=== PATIENT | male | born 1950 | race Caucasian/White ===

== ENCOUNTER → 2016-09-27 | Outpatient (CLI) | payer SELFPAY | LOC: HHS 09:50 | DX: Z12.83 Encounter for screening for malignant neoplasm of skin (principal) ==

== ENCOUNTER → 2017-04-13 | Outpatient (CLI) | payer MEDICARE ==
--- NOTE | 2017-04-13 15:31 | RADIOLOGY REPORT (SQ) ---
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 TECHNIQUE: Axial images acquired through the brain without and with intravenous contrast. Images re viewed with bone, brain and subdural windows. Images stored on PACS. All CT scanners at this facility use dose modulation, iterative reconstruction, and/or weight based d osing when appropriate to reduce radiation dose to as low as reasonably achievable (ALARA). [facility]: Dose Right [facility]: CareDose [facility]: Dose Right [facility]: Teradose 4D [facility]: HERMEL DELOR CONTRAST TYPE AND DOSE: contrast/concentration: Isovue 370.00 mg/ml; Total Contrast Delivered: 50.0 ml; Total Saline Delivered: 55.0 ml RENAL FUNCTION: Creatinine 1.0 RADIATION DOSE: CT Rad equipment meets quality standard of care and radiation dose reduction techniq ues were employed. CTDIvol: 49.0 mGy. DLP: 1762 mGy-cm.. LIMITATIONS: None. FINDINGS: VENTRICLES: Normal size and contour. CEREBRUM: No masses. No hemorrhage. No midline shift. Normal dorantes/white matter differentiation. No ev idence for acute infarction. No enhancing lesions. CEREBELLUM: No masses. No hemorrhage. No alteration of density. No evidence for acute infarction. No enhancing lesions. EXTRA-AXIAL SPACES: No fluid collections. No enhancing lesions. ORBITS AND GLOBE: No intra- or extraconal masses. Normal contour of globe without masses. CALVARIUM: No fracture. PARANASAL SINUSES: No fluid or mucosal thickening. SOFT TISSUES: No mass or hematoma. OTHER: No other significant finding. IMPRESSION: NORMAL BRAIN CT WITHOUT AND WITH CONTRAST. EVIDENCE OF ACUTE STROKE: NO. TECHNICAL DOCUMENTATION: JOB ID: [id number] Quality ID # [id number]: Final reports with documentation of one or more dose reduction techniques (e.g., Au tomated exposure control, adjustment of the mA and/or kV according to patient size, use of iterative reconstruction technique) 2010 [employer]- All Rights Reserved
== END ==
LOC: RAD 12:41
PROVIDERS: ATTEND Radiology Radiation Oncology
DX: C77.0 Secondary and unspecified malignant neoplasm of lymph nodes of head, face and neck (principal); H53.9 Unspecified visual disturbance; C79.9 Secondary malignant neoplasm of unspecified site
CPT/HCPCS: 70470; 82565

== ENCOUNTER → 2017-04-15 | Outpatient (CLI) | payer MEDICARE ==
--- NOTE | 2017-04-17 09:41 | RADIOLOGY REPORT (SQ) ---
EXAM DESCRIPTION: PET CT SKULL/THIGH COMPLETED DATE/TIME: 04/15/2017 8:24 pm REASON FOR STUDY: HEAD, NECK CANCER C79.9 SECONDARY MALIGNANT NEOPLASM OF UNSPECIFIED SITE C77.0 S EC AND UNSP MALIG NEOPLASM OF NODES OF HEAD, FACE AND COMPARISON: CT from [facility] dated 03/05/2017. RADIONUCLIDE AND DOSE: 10.0 mCi F18 FDG The route of agent administration: Intravenous FASTING BLOOD SUGAR: 126 mg/dl CONTRAST TYPE AND DOSE: No CT contrast given. TECHNIQUE: Blood glucose level was verified. Above dose of FDG was injected intravenously. 2-D seg mented attenuation correction images were obtained from the base of the skull to the midthighs. Nonc ontrast CT images were obtained for attenuation correction and fusion with emission images. CT image s were performed without oral or intravenous contrast and are not sensitive for parenchymal lesions. A series of overlapping emission PET images were obtained. Images reviewed and manipulated at [facility] work station by the radiologist. Images stored on PACS. LIMITATIONS: None. FINDINGS: HEAD AND NECK: Extensive confluent soft tissue mass along the right side of the nasopharyn x and oropharynx extending from the skull base to the level of the epiglottis. Margins are difficult to evaluate on noncontrast imaging. There is bony destruction involving the clivus with soft tissue activity, mean SUV 7.47, as well as bony destruction extending to the level of the right jugular for amen with soft tissue mean SUV 8.05. Extensive soft tissue mass extending along the right side of th e nasopharynx and oropharynx with mean SUV values approaching 7. Large right submandibular lymph nod e measuring 4.2 x 4.8 cm (series 3, image 44). Mean SUV value 6.59. Midline submental lymph node me asuring 1.1 by 2.3 cm (series 3, image 46). Mean SUV value 6.48. Right-sided cervical lymph node at the level of the hyoid bone measuring 1.4 cm (series 3, image 52). Mean SUV value 8.72. Left side cervical lymph node at the level of the mandibular angle measuring 0.9 x 1.3 cm (series 3, image 30). Mean SUV value 4.72. CHEST: No areas of abnormal metabolic activity in the chest. ABDOMEN AND PELVIS: No areas of abnormal metabolic activity in the abdomen or pelvis. Expected physi ologic activity is present in the genitourinary system and bowel. PROXIMAL LOWER EXTREMITIES: No areas of abnormal metabolic activity in the soft tissues of the lower extremities. BONES: No abnormal metabolic activity in the visualized skeleton. ADDITIONAL CT FINDINGS: No additional significant findings on the noncontrast CT images. OTHER: No other significant findings. IMPRESSION: 1. EXTENSIVE SOFT TISSUE MASS ALONG THE RIGHT SIDE OF THE NASOPHARYNX AND OROPHARYNX EXTENDING FROM T HE SKULLBASE TO THE LEVEL OF THE EPIGLOTTIS CONSISTENT WITH KNOWN MALIGNANCY. THERE IS BONY DESTRUCT ION INVOLVING THE RIGHT SIDE OF THE SKULL BASE. THERE ARE ALSO SEVERAL ENLARGED LYMPH NODES DESCR IBED WITH ABNORMAL METABOLIC ACTIVITY CONSISTENT WITH METASTASES INCLUDING RIGHT AND LEFT SUBMANDIBUL AR ADENOPATHY AND MIDLINE SUBMENTAL ADENOPATHY WELL RIGHT CERVICAL ADENOPATHY. 2. NO ABNORMAL METABOLIC ACTIVITY IN THE CHEST, ABDOMEN, OR PELVIS. NO SIGNIFICANT CT FINDINGS IN TH CHRIS AREAS. TECHNICAL DOCUMENTATION: JOB ID: [id number] [employer]- All Rights Reserved
== END ==
LOC: RAD 15:25
PROVIDERS: ATTEND Radiology Radiation Oncology
DX: C77.0 Secondary and unspecified malignant neoplasm of lymph nodes of head, face and neck (principal); C79.9 Secondary malignant neoplasm of unspecified site
CPT/HCPCS: 78815; A9552

== ENCOUNTER 2017-10-14 11:35 | Emergency (ER) | payer MEDICARE, MEDICAID ==
[2017-10-14] MEDS ORDERED: RACEPINEPHRINE HCL 2.25% NEB 0.5 ML AMPUL NEB ONE (12:00)
[2017-10-14] MEDS ORDERED: NORMAL SALINE 1000 ML 1,000 ML IV ONE (12:00)
[2017-10-14] MEDS ORDERED: DEXAMETHASONE SOD PHOS INJ 10 MG/1 ML VIAL IV ONE (12:00)
--- NOTE | 2017-10-14 12:00 | ER Document Report ---
ED General - General Chief Complaint: Breathing Difficulty Stated Complaint: DIFFICULTY BREATHING Time Seen by Provider: 10/14/17 11:46 TRAVEL OUTSIDE OF THE [place] IN LAST 30 DAYS: No - HPI Patient complains to provider of: Difficulty breathing Notes: Patient coming in for difficulty breathing. Patient has known neck cancer throat cancer is followed up in [place] at [facility]. Patient states he has undergone radiation however acutely became short of breath today worsening the last few days. Patient denies any fevers chills nausea vomiting. Patient states feels like something is in his throat that he needs to cough up however cannot at this time. Patient does have a PEG tube because of dysphasia. Most of his medications are given 3 days 2. Patient also currently is on Eliquis because of a history of PE in the past. Patient states was supposed to have ENT surgery however this has been canceled as that the patient cannot have an MRI performed - Related Data Allergies/Adverse Reactions: No Known Allergies Allergy (Unverified 10/14/17 11:50) Past Medical History - Social History Smoking Status: Current Every Day Smoker Chew tobacco use (# tins/day): No Family History: Reviewed & Not Pertinent Patient has suicidal ideation: No Patient has homicidal ideation: No Renal/ Medical History: Denies: Hx Peritoneal Dialysis Review of Systems - Review of Systems Constitutional: No symptoms reported EENT: No symptoms reported Cardiovascular: No symptoms reported Respiratory: Short of breath Gastrointestinal: No symptoms reported Genitourinary: No symptoms reported Male Genitourinary: No symptoms reported Musculoskeletal: No symptoms reported Skin: No symptoms reported Hematologic/Lymphatic: No symptoms reported Neurological/Psychological: No symptoms reported Physical Exam - Vital signs Vitals: Temp Pulse Resp BP Pulse Ox 98.9 F 110 H 18 168/62 H 96 10/14/17 11:51 10/14/17 11:51 10/14/17 11:51 10/14/17 11:51 10/14/17 11:51 Interpretation: Normal - General General appearance: Appears well, Alert - HEENT Head: Normocephalic, Atraumatic Eyes: Normal Pupils: PERRL Mucous membranes: Dry - Respiratory Respiratory status: No respiratory distress Chest status: Nontender Breath sounds: Normal Chest palpation: Normal - Cardiovascular Rhythm: Regular Heart sounds: Normal auscultation Murmur: No - Abdominal Inspection: Normal - PEG tube in place no signs of infection Distension: No distension Bowel sounds: Normal Tenderness: Nontender Organomegaly: No organomegaly - Back Back: Normal, Nontender - Extremities General upper extremity: Normal inspection, Nontender, Normal color, Normal ROM , Normal temperature General lower extremity: Normal inspection, Nontender, Normal color, Normal ROM , Normal temperature, Normal weight bearing. No: Donato's sign - Neurological Neuro grossly intact: Yes Cognition: Normal Orientation: AAOx4 Steven Coma Scale Eye Opening: Spontaneous Steven Coma Scale Verbal: Oriented [place] Coma Scale Motor: Obeys Commands Steven Coma Scale Total: 15 Speech: Normal Motor strength normal: LUE, RUE, LLE, RLE Sensory: Normal - Psychological Associated symptoms: Normal affect, Normal mood - Skin Skin Temperature: Warm Skin Moisture: Dry Skin Color: Normal Course - Re-evaluation Re-evalutation: 10/14/17 16:10 Patient does have chronic anemia with chemistry profile showing some signs of possible dehydration and slight hyperkalemia. Patient underwent a CT of the neck. At this time to read is still pending I did call the radiologist states multiple sclerotic bony changes more likely from metastatic disease concerned as last radiographical information here as available is in March PET scan comparison shows possible enlargement of the mass with some cellular debris possibly tumor necrosis from radiation therapy there is some signs of some airway narrowing. Also concerns for possible aspiration changes in the upper lung larson. I discussed the case with Dr. Aguirre of [facility]. Agrees to transfer at this time for further evaluation agrees with antibiotics for CT findings will give Unasyn per his request. At this time patient's oxygenation presentation respiratory rate do look to be stable did not see any need for prophylactic intubation at this time do not see any need to actually intubate the patient at this time. Patient is maintaining his airway maintaining his secretions. - Vital Signs Vital signs: Temp Pulse Resp BP Pulse Ox 98.9 F 110 H 18 135/91 H 96 10/14/17 18:00 10/14/17 11:51 10/14/17 18:00 10/14/17 12:00 10/14/17 18:00 - Laboratory Result Diagrams: 10/14/17 13:05 10/14/17 13:05 Laboratory results interpreted by me: 10/14/17 10/14/17 10/14/17 13:05 13:05 14:04 RBC 3.04 L Hgb 9.4 L Hct 28.5 L RDW 14.8 H Seg Neuts % (Manual) 93 H Lymphocytes % (Manual) 3 L Monocytes % (Manual) 2 L Abs Neuts (Manual) 8.8 H Abs Lymphs (Manual) 0.3 L Carbonic Acid ABG pCO2 ABG HCO3 ABG Total CO2 Potassium 5.3 H Carbon Dioxide 36 H BUN 33 H Glucose 120 H Urine Ascorbic Acid 40 H 10/14/17 15:18 RBC Hgb Hct RDW Seg Neuts % (Manual) Lymphocytes % (Manual) Monocytes % (Manual) Abs Neuts (Manual) Abs Lymphs (Manual) Carbonic Acid 1.38 H ABG pCO2 45.9 H ABG HCO3 31.1 H ABG Total CO2 32.5 H Potassium Carbon Dioxide BUN Glucose Urine Ascorbic Acid Discharge - Discharge Clinical Impression: Cancer of neck, Narrowing of airway, Aspiration pneumonia, Dyspnea Condition: Fair Disposition: [facility] Referrals: BHARATHI LARIOS, [ACTIVE STAFF] - Follow up as needed
--- NOTE | 2017-10-14 12:33 | RADIOLOGY REPORT (SQ) ---
EXAM DESCRIPTION: CHEST 2 VIEWS COMPLETED DATE/TIME: 10/14/2017 12:13 pm REASON FOR STUDY: sob COMPARISON: PET-CT 04/15/2017 EXAM PARAMETERS: NUMBER OF VIEWS: two views TECHNIQUE: Digital Frontal and Lateral radiographic views of the chest acquired. RADIATION DOSE: NA LIMITATIONS: none FINDINGS: LUNGS AND PLEURA: No opacities, masses or pneumothorax. No pleural effusion. MEDIASTINUM AND HILAR STRUCTURES: No masses or contour abnormalities. HEART AND VASCULAR STRUCTURES: Heart normal size. No evidence for failure. BONES: Old healed right lateral rib fractures HARDWARE: Left-sided PICC line tip superior vena cava. Left upper quadrant gastrostomy tube. OTHER: Blood pressure cuff on the patient's right upper arm is projected over the right lateral costo phrenic sulcus on the frontal film IMPRESSION: NO ACUTE RADIOGRAPHIC FINDING IN THE CHEST. TECHNICAL DOCUMENTATION: JOB ID: [id number] [employer]- All Rights Reserved Reading location - IP/workstation name: [email or web address]
[2017-10-14] MEDS ORDERED: OXYCODONE-ACETAMINOPHEN 5-325 MG TABLET PEG ONE (12:54)
[2017-10-14] MEDS ORDERED: CYCLOBENZAPRINE HCL 10 MG TABLET PO ONE (13:13)
[2017-10-14 13:29] VITALS: BP 135/91
[2017-10-14 13:37] LABS: ANION GAP 11 (5-19); BLOOD UREA NITROGEN 33 mg/dL (7-20); CALCIUM 10.2 mg/dL (8.4-10.2); CARBON DIOXIDE 36 mmol/L (22-30); CHLORIDE 98 mmol/L (98-107); GLUCOSE 120 mg/dL (75-110); POTASSIUM 5.3 mmol/L (3.6-5.0)
[2017-10-14 13:39] LABS: HEMATOCRIT 28.5 % (37.9-51.0); HEMOGLOBIN 9.4 g/dL (13.5-17.0); MEAN CORPUSCULAR HGB CONC 33.1 g/dL (32.0-36.0); MEAN CORPUSCULAR VOLUME 94 fl (80-97); PLATELET COUNT 435 10^3/uL (150-450); RED BLOOD COUNT 3.04 10^6/uL (4.35-5.55); RED CELL DISTRIBUTION WIDTH 14.8 % (11.5-14.0); WHITE BLOOD COUNT 9.5 10^3/uL (4.0-10.5)
[2017-10-14 13:59] LABS: ABSOLUTE LYMPHOCYTES# (MANUAL) 0.3 10^3/uL (0.5-4.7); ABSOLUTE MONOCYTES # (MANUAL) 0.2 10^3/uL (0.1-1.4); ABSOLUTE NEUTROPHILS# (MANUAL) 8.8 10^3/uL (1.7-8.2); BASOPHILS % (MANUAL) 0 % (0-2); EOSINOPHILS % (MANUAL) 2 % (0-6); LYMPHOCYTES % (MANUAL) 3 % (13-45); MONOCYTES % (MANUAL) 2 % (3-13); SEGMENTED NEUTROPHILS % (MAN) 93 % (42-78); TOTAL CELLS COUNTED 100
[2017-10-14 14:00] LABS: ANISOCYTOSIS SLIGHT; PLATELET CLUMPS PRESENT; PLATELET COMMENT ADEQUATE; TOXIC GRANULATION 1+
[2017-10-14] MEDS ORDERED: DIPHENHYDRAMINE HCL 50 MG/ML VIAL IV ONE (14:05)
[2017-10-14] MEDS ORDERED: MORPHINE SULFATE 10 MG/ML INJ IV ONE (14:05)
[2017-10-14] MEDS ORDERED: FENTANYL CITRATE INJ/PF 100 MCG/2 ML AMPUL IV ONE (14:06)
[2017-10-14 14:39] LABS: APPEARANCE,URINE CLEAR; BILIRUBIN,URINE NEGATIVE (NEGATIVE); COLOR,URINE YELLOW; GLUCOSE, URINE NEGATIVE (NEGATIVE); KETONES,URINE NEGATIVE (NEGATIVE); LEUKOCYTE ESTERASE,URINE NEGATIVE (NEGATIVE); NITRITE,URINE NEGATIVE (NEGATIVE); PROTEIN,URINE NEGATIVE (NEGATIVE); URINE SPECIFIC GRAVITY 1.021; UROBILINOGEN,URINE NEGATIVE mg/dL (<2.0)
[2017-10-14] MEDS ORDERED: LEVOFLOXACIN 500 MG/D5W RTU 500 MG/100 ML RTUPB IV ONE (15:05)
[2017-10-14 15:28] LABS: ARTERIAL BLOOD BASE EXCESS 6.3 mmol/L; ARTERIAL BLOOD FIO2 ROOM AIR; ARTERIAL BLOOD H2CO3 1.38 mmol/L (1.05-1.35); ARTERIAL BLOOD HCO3 31.1 mmol/L (20-26); ARTERIAL BLOOD O2 SATURATION 96.2 % (94-98); ARTERIAL BLOOD PCO2 45.9 mmHg (35-45); ARTERIAL BLOOD PH 7.45 (7.35-7.45); ARTERIAL BLOOD PO2 80.4 mmHg (80-100); ARTERIAL BLOOD TOTAL CO2 32.5 mmol/L (23-27)
[2017-10-14] MEDS ORDERED: AMPICILLIN SOD/SULBACTAM 3 GM VIAL IV ONE (15:32)
--- NOTE | 2017-10-14 15:34 | RADIOLOGY REPORT (SQ) ---
EXAM DESCRIPTION: CT SOFT TISSUE NECK WITH COMPLETED DATE/TIME: 10/14/2017 2:27 pm REASON FOR STUDY: hx neck mass sob now . Prior radiation therapy. COMPARISON: PET/CT 04/15/2017. TECHNIQUE: Post IV contrasted scanning from skull base through lung apices with review of bone, soft tissue and lung windows. Reconstructed coronal and sagittal MPR images reviewed. All images stored on PACS. All CT scanners at this facility use dose modulation, iterative reconstruction, and/or weight based d osing when appropriate to reduce radiation dose to as low as reasonably achievable (ALARA). [facility]: Dose Right [facility]: CareDose [facility]: Dose Right [facility]: Teradose 4D [facility]: [employer] CONTRAST TYPE AND DOSE: contrast/concentration: Isovue 370.00 mg/ml; Total Contrast Delivered: 74.0 ml; Total Saline Delivered: 45.0 ml RENAL FUNCTION: Creatinine 0.59 RADIATION DOSE: CT Rad equipment meets quality standard of care and radiation dose reduction techniq ues were employed. CTDIvol: 11.3 mGy. DLP: 367 mGy-cm. . LIMITATIONS: None. FINDINGS: SKULL BASE: Partially opacified right-sided mastoid air cells. There are lucent areas at the clivus and the skull base. MAJOR SALIVARY GLANDS: No inflammatory changes. The right submandibular gland is not well visualized . LYMPHADENOPATHY: No pathologically enlarged lymph nodes are identified. MUCOSAL MASSES OR ASYMMETRY: The previously described ill defined soft tissue mass along the right si de of the nasopharynx and oropharynx extending from the skull base to the level of the epiglottis has decreased attenuation. LARYNX/CORDS: There is debris occluding the hypopharynx (axial images 55 -59/113). VASCULAR STRUCTURES: The distal right internal jugular vein is not visualized, worrisome for occlusio n. The bilateral internal carotid arteries and the left internal jugular vein are patent. LUNG APICES: Partially visualized 5 mm pleural-based nodule at the lateral right upper lobe (axial im age 113/113. Partially visualized ground-glass opacity at the anterior left lower lobe (axial image 113/ 113). BONES: Multiple lucent areas throughout the cervical and visualized upper thoracic spine, worse at C2 and C3 vertebral bodies. Lucent areas with cortical destruction at the C3 vertebral body extending into the right pedicle, right facet and right lamina. Lucent areas at the right lamina of C2 vertebr al body. THYROID: Normal size. PARANASAL SINUSES: No air-fluid levels. Small mucous retention cyst/polyp at the right maxillary sin us. IMPRESSION: 1. Ill-defined soft tissue mass along the right side of the nasopharynx and oropharynx extending from the skull base to the level of the epiglottis has decreased attenuation, suggestive of necrosis. 2. Debris occluding the hypopharynx. 3. Nonvisualization of the distal right internal jugular vein, worrisome for occlusion. 4. Lucent areas at the clivus, skull base and throughout the cervical and visualized upper thoracic s pine, worrisome for diffuse osseous metastatic disease. Lucent areas with cortical destruction at th e C3 vertebral body extending into the right pedicle, right facet and right lamina and lucent areas a t the right lamina of C2 vertebral body, raise concern for pathologic fractures. MRI may be worthwhi le for better evaluation. 5. Partially opacified right-sided mastoid air cells. 6. Partially visualized 5 mm pleural-based nodule at the lateral right upper lobe, metastasis cannot be excluded. Partially visualized ground-glass opacity at the anterior left upper lobe, may be secon ardha to progression of disease versus developing pneumonia. Dedicated CT chest can help in better ev aluation. TECHNICAL DOCUMENTATION: JOB ID: [id number] [facility] Quality ID # [id number]: Final reports with documentation of one or more dose reduction techniques (e.g., Au tomated exposure control, adjustment of the mA and/or kV according to patient size, use of iterative reconstruction technique) 2010 [employer]- All Rights Reserved Reading location - IP/workstation name: [email or web address]
[2017-10-14] MEDS ORDERED: LORAZEPAM INJ 2 MG/1 ML VIAL IV ONE (16:51)
[2017-10-14] MEDS ORDERED: DEXAMETHASONE SOD PHOSPHATE INJ 4 MG/1 ML VIAL IV SCH (18:00)
== END 2017-10-14 18:20 | disposition short-term general hospital (02) ==
LOC: ER 11:35
DX: C76.0 Malignant neoplasm of head, face and neck (principal); C14.0 Malignant neoplasm of pharynx, unspecified; J39.8 Other specified diseases of upper respiratory tract; J69.0 Pneumonitis due to inhalation of food and vomit; R06.00 Dyspnea, unspecified; R13.10 Dysphagia, unspecified; R06.9 Unspecified abnormalities of breathing; F17.200 Nicotine dependence, unspecified, uncomplicated; Z86.711 Personal history of pulmonary embolism; Z79.01 Long term (current) use of anticoagulants
CPT/HCPCS: 94640; 99285; 96361; 96375; 96365; 36415; 87040; 82803; 85025; 87077; 80048; 81001; 71046; 70491; 36600; A9270 ×2; J1200; J3010; J0295; J2060; J7030; J1100; J3490